=== PATIENT | male | born 1985 | race Caucasian/White ===

== ENCOUNTER 2016-12-30 12:40 | Emergency (ER) | payer SELFPAY ==
[2016-12-30] MEDS ORDERED: Proparacaine 0.5% Ophth Soln 15 ML Bottle EYELF ONE (12:50)
[2016-12-30 12:54] VITALS: BP 133/80
[2016-12-30] MEDS ORDERED: Ciprofloxacin 0.3% Ophth Soln 2.5 ML Bottle EYELF ONE (13:11)
[2016-12-30] MEDS ORDERED: Ketorolac 0.5% Ophth Soln 5 ML Bottle EYELF ONE (13:12)
--- NOTE | 2016-12-30 13:19 | EDM.PDOC ---
ED HPI EYE COMPLAINT - General Chief Complaint: Eye Problems Stated Complaint: FOREIGN BODY IN LEFT EYE Time Seen by Provider: 12/30/16 13:00 Source: Reports: Patient, Family History Limitations: Reports: No limitations - History of Present Illness INITIAL COMMENTS - FREE TEXT/NARRATIVE: 31-year-old male presents the ED with foreign body sensation left eye for the last 24 hours or more. He's not exactly sure when he got something in his eye. 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 However he was also grinding metal 2 and half days ago. The ice continues to have foreign body sensation with feeling of something underneath his left eyelid. It is excessively tearing and very sensitive to light. He does not wear contact lenses. 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 [No Known Home Meds] 12/30/16 12/30/16 Past Medical History - Past Health History Medical/Surgical History: Denies Medical/Surgical History Social & Family History - Tobacco Use Smoking Status *Q: Current Every Day Smoker Years of Tobacco use: 6 Second Hand Smoke Exposure: Yes - Alcohol Use Days Per Week of Alcohol Use: 0 Number of Drinks Per Day: 7 Total Drinks Per Week: 0 - Recreational Drug Use Recreational Drug Use: No - Living Situation & Occupation Living situation: Reports: Occupation: employed ED ROS GENERAL - Review of Systems Review Of Systems: See Below Constitutional: Reports: no symptoms HEENT: Reports: Eye discharge, Eye pain (mild left side.see history of present illness) Respiratory: Reports: No Symptoms, Cough (occasional smoker's cough.) Cardiovascular: Reports: No symptoms Endocrine: Reports: no symptoms GI/Abdominal: Reports: No symptoms : Reports: no symptoms Musculoskeletal: Reports: no symptoms Skin: Reports: no symptoms Neurological: Reports: No Symptoms, Change in Speech Psychiatric: Reports: No symptoms Hematologic/Lymphatic: Reports: no symptoms Immunologic: Reports: no symptoms ED EXAM GENERAL W FULL EYE - Physical Exam Exam: See Below Exam Limited By: No limitations General Appearance: alert, WD/WN, no apparent distress, other (left eye is quite erythematous.) Eye Exam: left eye: conjunctival injection (moderate), corneal abrasion (large corneal abrasion after removal of foreign body left cornea at the 4:00 position. ), foreign body (foreign body identified on slit lamp examination at the 4:00 position about 3 mm from the limbus. It is charcoal in color and is question whether/ALT or metal. Was removed with the aid of this slit-lamp and a 25-gauge needle. There was a small rust ring which was burred away as well.) Eyelids: left: normal appearance, lid everted for exam Conjunctiva & Sclera: left: injected (moderate) Cornea Exam: right: foreign body (4:00 position charcoal for body that was deeply embedded and not removable with a moistened Q-tip. Was removing slit- lamp examination with a 27-gauge needle. He broke up into fragments.), left: corneal abrasion (4:00 position) Extraocular Movements: bilateral: intact Pupils: normal accommodation Pupillary Size: bilateral: 6 mm Anterior Chamber: left: normal appearance Posterior Chamber: left: normal funduscopic ED EYE w/ Add Procedure - Eye Procedure Alcaine Drops Administered: Yes Eye FB Removal: removal w/ needle (under slit lamp examination.) Antibiotic Oinment/Drps Admin: left eye (Cipro) Course - Vital Signs Last Recorded V/S: Last Vital Signs Temp 36.8 C 12/30/16 12:49 Pulse 75 12/30/16 12:49 Resp 12 12/30/16 12:49 BP 133/80 12/30/16 12:49 Pulse Ox 98 12/30/16 12:49 - Orders/Labs/Meds Meds: Medications Discontinued Medications Generic Name Dose Route Start Last Admin Trade Name Freq PRN Reason Stop Dose Admin Ciprofloxacin 2.5 ml 12/30/16 13:11 Ciloxan 0.3% Ophth Soln EYELF 12/30/16 13:12 ONETIME ONE Ketorolac Tromethamine 2.5 ml 12/30/16 13:12 Acular 0.5% Ophth Soln EYELF 12/30/16 13:13 ONETIME ONE Proparacaine HCl 5 ml 12/30/16 12:50 Proparacaine 0.5% Ophth Soln EYELF 12/30/16 12:51 ONETIME ONE - Radiology Interpretation Free Text/Narrative:: 31-year-old male arrives in the ED with foreign body sensation left eye times at least 24 hours. He was doing a bit of grinding metal couple days ago and also working upon arrival found actually could have gotten into his eye. Foreign body sensation started gradually over the last 24 hours. The eye has foreign body sensation with excessive tearing and very sensitive to light full is 1224 hours examination with slit lamp identified a foreign body at the 4:00 position 3-4 mm from the limbus. It was removed with the aid of a 27-gauge needle tip under local anesthetic. Small bur ring was noted and was burred away as well. This left a fair lead deep corneal abrasion. This will take at least 2 days to heal. Patient will be placed on Cipro eyedrops 2 drops every 6 hours for the next 3 days to ensure no infection occurs ketorolac eyedrops 2 drops every 6 hours needed for relief of pain. Follow up if not completely back to normal in 48-72 hours Departure - Departure Time of Disposition: 13:13 Disposition: Home, Self-Care 01 Condition: fair Clinical Impression: Foreign body in cornea, left eye, initial encounter Qualifiers: Encounter type: initial encounter Qualified Code(s): T15.02XA - Foreign body in cornea, left eye, initial encounter Instructions: Eye Foreign Body Referrals: PCP,None [Primary Care Provider] - Forms: ED Department Discharge Additional Instructions: evaluation in the mesh from today in regards to foreign body sensation left eye for the last 12-24 hours. Unknown when something entered your eye. Identified a metallic foreign body in the left cornea at the 4 o`clock position. the foreign body was found to be deeply embedded in the cornea and as you suggested may well gone into the eye 2-3 days ago. It was removed with the aid of the slit- lamp with a 27-gauge needle. There was a small residual rust ring that was burred away. This is left a fairly deep crater in the cornea which will heal over the next 48 hours. Treatment at home is to use ketorolac eyedrops 2 drops every 6 hours needed for pain relief. Antibiotic drop in ciprofloxacin 2 drops every 66 hours for the next 3 days to prevent secondary infection. It should be covered for the next 24 hours to help it heal. Patch off distal put the drops in the drops should be put in about 5 minutes apart from each other so it each other out. after 24 hours it's up to you whether or not you need to wear the eye patch. i will otherwise be sensitive to sunlight/bright light for up to 3 days.return to medical care if he not completely back to normal in 48 hours time.
== END 2016-12-30 13:40 | disposition home or self-care (01) ==
LOC: JD.ED 12:40
DX: T15.02XA Foreign body in cornea, left eye, initial encounter (principal); F17.200 Nicotine dependence, unspecified, uncomplicated
CPT/HCPCS: 65222; 99283; A9270

== ENCOUNTER 2017-12-03 21:45 | Emergency (ER) | payer SELFPAY ==
[2017-12-03 22:11] VITALS: BP 157/85
--- NOTE | 2017-12-03 22:37 | EDM.PDOC ---
ED HPI GENERAL MEDICAL PROBLEM - General Chief Complaint: Genitourinary Problem Stated Complaint: ABDOMINAL/SWOLLEN TESTICLES Time Seen by Provider: 12/03/17 22:16 Source of Information: Reports: Patient History Limitations: Reports: No Limitations - History of Present Illness INITIAL COMMENTS - FREE TEXT/NARRATIVE: This is a 32-year-old male. About a month ago he had some pain in his testicles lasting about 2-3 days. It seemed to go away and he wasn't too concerned but then yesterday he started having some pain in his testicles a squeezing-like feeling that his only gotten worse and so he comes to the ER for evaluation. He states that the bottom of his testicles he feels these lumps and he is afraid he might have cancer. He denies any penile discharge she denies any difficulty in defecation he denies any urinary symptoms. He denies any fever or chills and no other acute problems. Groin Pain Score (Numeric/FACES): 8 - Related Data Allergies Allergy/AdvReac Type Severity Reaction Status Date / Time No Known Allergies Allergy Verified 12/03/17 22:05 Home Meds: Home Meds Doxycycline [Vibramycin] 100 mg PO BID #20 cap 12/04/17 [Rx] Past Medical History - Past Health History Medical/Surgical History: Denies Medical/Surgical History - Infectious Disease History Infectious Disease History: Reports: Chicken Pox Social & Family History - Family History Family Medical History: Noncontributory - Tobacco Use Smoking Status *Q: Current Every Day Smoker Years of Tobacco use: 15 Packs/Tins Daily: 1 Second Hand Smoke Exposure: Yes - Caffeine Use Caffeine Use: Reports: Coffee, Energy Drinks - Alcohol Use Days Per Week of Alcohol Use: 0 Number of Drinks Per Day: 7 Total Drinks Per Week: 0 - Recreational Drug Use Recreational Drug Use: No - Living Situation & Occupation Living situation: Reports: Occupation: Employed ED ROS GENERAL - Review of Systems Review Of Systems: See Below Constitutional: Denies: Fever, Chills HEENT: Reports: No Symptoms Respiratory: Reports: No Symptoms Cardiovascular: Reports: No Symptoms Endocrine: Reports: No Symptoms GI/Abdominal: Reports: Abdominal Pain : Reports: Other (Scrotum pain). Denies: Discharge, Dysuria, Frequency Musculoskeletal: Reports: No Symptoms Skin: Reports: No Symptoms Neurological: Reports: No Symptoms Psychiatric: Reports: No Symptoms Hematologic/Lymphatic: Reports: No Symptoms ED EXAM, RENAL/ - Physical Exam Exam: See Below Exam Limited By: No Limitations General Appearance: Alert, WD/WN, Mild Distress Eye Exam: Bilateral Eye: Normal Inspection Ears: Normal External Exam Nose: Normal Inspection Throat/Mouth: Normal Inspection, Normal Lips, Normal Voice, No Airway Compromise Head: Normocephalic Neck: Supple Respiratory/Chest: No Respiratory Distress GI/Abdominal: Soft (Male) Exam: Normal Inspection, Scrotum Tenderness (L), Scrotum Tenderness (R ), Other (Both epididymis are tender and swollen. No masses are noted. The testicles are also slightly sore but they're symmetrical.) Rectal (Males) Exam: Deferred Back Exam: Full Range of Motion Extremities: Normal Range of Motion Neurological: Alert, Oriented Psychiatric: Normal Affect, Normal Mood Skin Exam: Warm, Dry Course - Vital Signs Last Recorded V/S: Last Vital Signs Temp 97.8 F 12/03/17 22:09 Pulse 108 H 12/03/17 22:09 Resp 16 12/03/17 22:09 BP 157/85 H 12/03/17 22:09 Pulse Ox 96 12/03/17 22:09 - Orders/Labs/Meds Orders: Active Orders 24 hr Category Date Time Status Scrotum and Contents [US] Stat Exams 12/03/17 22:31 Taken - Radiology Interpretation Free Text/Narrative:: Ultrasound did not show any tumors or abnormal testicles it did show a fluid collection around the epididymis on both testicle suggesting epididymitis - Re-Assessments/Exams Free Text/Narrative Re-Assessment/Exam: 12/04/17 00:23 I spoke to the patient regarding the ultrasound results. We will give him a Rocephin shot [address] him on doxycycline. He does not want narcotics as he has a drug screen is going to happen at work. I will give him a couple days off work to hopefully settle this down aggravated by continual movement. Departure - Departure Time of Disposition: 00:24 Disposition: Home, Self-Care 01 Condition: Good Clinical Impression: Epididymitis, bilateral - Discharge Information Prescriptions: Doxycycline [Vibramycin] 100 mg PO BID #20 cap Referrals: Lily Lara, [employer] TECHNIC[employer] [Primary Care Provider] - Forms: ED Department Discharge, ED Return to Work/School Form Additional Instructions: Using ice pack to help with the soreness, avoid strenuous activity or lots of walking, take ibuprofen or Aleve, start the antibiotics tomorrow when you get them, recheck with your family doctor in one week, return to the ER if your symptoms worsen or you develop a fever greater than 101.5 - My Orders Last 24 Hours: My Active Orders 12/03/17 22:31 Scrotum and Contents [US] Stat - Assessment/Plan Last 24 Hours: My Active Orders 12/03/17 22:31 Scrotum and Contents [US] Stat
[2017-12-04] MEDS ORDERED: cefTRIAXone 1 GM, Lidocaine 1% 2.1 ML IM ONE ×2 (00:24)
--- NOTE | 2017-12-05 09:15 | US ---
Testicular ultrasound: Multiple real-time images of the testicles were obtained. Comparison: No prior testicular ultrasound. Testicles have a homogeneous ultrasound appearance. Several scattered and incidental calcification seen within the right testicle. Small epididymal cyst noted within the left side measuring 4 mm. Very minimal hydroceles are noted on both sides. Both testicles show arterial and venous blood flow. Measurements: Right testicle: 5.4 x 2.5 x 3.2 cm Left testicle: 4.6 x 2.5 x 3.1 cm Impression: 1. Incidental findings. Nothing acute seen on testicular ultrasound exam. Diagnostic code #2 I agree with preliminary report issued by [facility] ([facility] report finalized on 12/04/17, 12:59 AM Central Time)
== END 2017-12-04 00:37 | disposition home or self-care (01) ==
LOC: JD.ED 21:45
DX: N45.1 Epididymitis (principal); F17.210 Nicotine dependence, cigarettes, uncomplicated
CPT/HCPCS: 76870; 93975; 96372; 99283; J0696

== ENCOUNTER 2017-12-04 22:36 | Emergency (ER) | payer SELFPAY ==
[2017-12-04 22:49] VITALS: BP 130/87
[2017-12-04] MEDS ORDERED: HYDROmorphone 1 MG/ML Syringe IM ONE (22:56)
[2017-12-04] MEDS ORDERED: Promethazine 25 MG/ML SDV IM ONE (22:57)
--- NOTE | 2017-12-04 22:58 | EDM.PDOC ---
ED HPI GENERAL MEDICAL PROBLEM - General Chief Complaint: Genitourinary Problem Stated Complaint: SWOLLEN BALLS/ BALLS HURT Time Seen by Provider: 12/04/17 22:56 Source of Information: Reports: Patient History Limitations: Reports: No Limitations - History of Present Illness INITIAL COMMENTS - FREE TEXT/NARRATIVE: 32-year-old male seen through the ED last evening by Dr. Hanna and had ultrasound of scrotal contents and identified to have bilateral epididymitis. Pain came on acutely yesterday but he's had 2 previous similar bouts of epididymal orchitis. He has no trouble voiding. PT came back tonight due to uncontrolled pain. Last evening he I shot of Rocephin 1 g intramuscularly and was started on doxycycline 100 mg twice daily. 1 narcotics at that time because he is impending upcoming drug testing for workplace. Pain is constant throbbing and worsened with movement or deep breathing. He can barely walk at this time. He is aware of pain up in his groin bilaterally at the insertion of the vas deferens through the abdominal wall. Onset: Sudden Onset Date: 12/03/17 Duration: Day(s): Location: Reports: Other (Both testicles.) Quality: Reports: Ache Severity: Moderate Improves with: Reports: Rest Worsens with: Reports: Other, Movement (Still having pain even at rest.) Context: Denies: Activity (Justino walking is very painful), Exercise, Lifting, Sick Contact, Trauma, Other Treatments [employer]: Reports: NSAIDS (Motrin all day long.) Groin Pain Score (Numeric/FACES): 10 - Related Data Allergies Allergy/AdvReac Type Severity Reaction Status Date / Time No Known Allergies Allergy Verified 12/05/17 00:43 Home Meds: Home Meds Doxycycline [Vibramycin] 100 mg PO BID #20 cap 12/04/17 [Rx] oxyCODONE HCl/Acetaminophen [Percocet 5-325 mg Tablet] 1 - 2 each PO Q4H PRN # 20 tablet 12/04/17 [Rx] Past Medical History - Past Health History Medical/Surgical History: Denies Medical/Surgical History Genitourinary History: Reports: Other (See Below) (By history has had epididymoorchitis 2 in the past. This would be the third time. This strongly suggests he has an ongoing prostatitis.) - Infectious Disease History Infectious Disease History: Reports: Chicken Pox Social & Family History - Family History Family Medical History: Noncontributory - Tobacco Use Smoking Status *Q: Never Smoker Years of Tobacco use: 15 Packs/Tins Daily: 1 Second Hand Smoke Exposure: Yes - Caffeine Use Caffeine Use: Reports: None - Alcohol Use Days Per Week of Alcohol Use: 0 Number of Drinks Per Day: 7 Total Drinks Per Week: 0 - Recreational Drug Use Recreational Drug Use: No - Living Situation & Occupation Living situation: Reports: Occupation: Employed ED ROS GENERAL - Review of Systems Review Of Systems: See Below Constitutional: Reports: Malaise, Weakness, Fatigue, Decreased Appetite. Denies : Fever, Chills HEENT: Reports: No Symptoms Respiratory: Reports: No Symptoms Cardiovascular: Reports: No Symptoms Endocrine: Reports: No Symptoms GI/Abdominal: Reports: No Symptoms : Reports: Other (Bilateral testicular pain rating up into the groin bilaterally.) Musculoskeletal: Reports: No Symptoms Skin: Reports: No Symptoms Neurological: Reports: No Symptoms Psychiatric: Reports: No Symptoms Hematologic/Lymphatic: Reports: No Symptoms Immunologic: Reports: No Symptoms ED EXAM, GI/ABD - Physical Exam Exam: See Below (Bilateral testicular pain rating up into the groin bilaterally. Started 2 and half days ago) Exam Limited By: No Limitations General Appearance: Alert, Moderate Distress Eyes: Bilateral: Normal Appearance Respiratory/Chest: No Respiratory Distress, Lungs Clear, Normal Breath Sounds, No Accessory Muscle Use Cardiovascular: Normal Peripheral Pulses, Regular Rate, Rhythm, No Edema, No Gallop GI/Abdominal Exam: Normal Bowel Sounds, Soft, Non-Tender, No Organomegaly, Other (Tender in the inguinal area bilaterally without inguinal adenopathy. This is in the distribution of the vas deferens segments where they come up to the external inguinal canals bilaterally.) (Male) Exam: No Hernia, Scrotum Tenderness (L), Scrotum Tenderness (R), Testicular Tenderness (L) (Along the distribution of the epididymis particularly inferior pole. There is no large inflammatory response or hydro- seals evident.), Testicular Tenderness (R) (Dictated the inferior pole but along the distribution of the epididymis) Extremities: Normal Inspection, Normal Range of Motion, Non-Tender, No Pedal Edema Neurological: Alert, Oriented, CN II-XII Intact, Normal Cognition. No: Normal Gait Psychiatric: Normal Affect, Normal Mood Skin Exam: Warm, Dry, Intact, Normal Color, No Rash Course - Vital Signs Last Recorded V/S: Last Vital Signs Temp 36.0 C 12/04/17 22:45 Pulse 114 H 12/04/17 22:45 Resp 18 12/04/17 22:45 BP 130/87 12/04/17 22:45 Pulse Ox 100 12/04/17 22:45 - Orders/Labs/Meds Meds: Medications Discontinued Medications Generic Name Dose Route Start Last Admin Trade Name Jaya PRN Reason Stop Dose Admin Hydromorphone HCl 1 mg 12/04/17 22:56 Dilaudid IM 12/04/17 22:57 ONETIME ONE Hydromorphone HCl 1 mg 12/04/17 23:07 12/04/17 23:16 Dilaudid IM 12/04/17 23:08 1 mg ONETIME ONE Administration Oxycodone/Acetaminophen 2 tab 12/04/17 23:12 12/04/17 23:19 Percocet 325-5 Mg PO 12/04/17 23:13 2 tab ONETIME ONE Administration Promethazine HCl 25 mg 12/04/17 22:57 12/04/17 23:16 Phenergan IM 12/04/17 22:58 25 mg ONETIME ONE Administration - Radiology Interpretation Free Text/Narrative:: 32-year-old male presents to the ED with increasing testicular pain secondary to epididymoorchitis diagnosed by ultrasound last evening in the ED. Patient was given a shot of Rocephin inch tube muscularly as there was no pharmacies open. He was started on doxycycline which she was able to purchase 3 tablets a day at $5 each because he didn't have insurance. On my examination he has no change in pathology and agree with bilateral epididymoorchitis. Further investigations are required. He does need to take doxycycline 1 tablet twice daily for the next 6 weeks to clear up prostatitis and bilateral epididymoorchitis. He's going to be something better for pain relief. He has been using Motrin high doses without much relief Write a prescription for Percocet 5/3/25 milligram tabs one or 2 every 4-6 hours as needed for pain relief for the next 3-5 days until the infection starts to settle down after he starts antibiotics. - Re-Assessments/Exams Free Text/Narrative Re-Assessment/Exam: 03/04/18 23:08 checking of the records he was prescribed 20 tablets of doxycycline. This would last him only 10 days. I usually like to treat acute infective process for about 6 weeks and therefore wears her prescription for doxepin 100 mg twice daily 6 weeks which is 84 tablets. Also wrote a prescription for Percocet 5/325 milligram tablets 20 tablets--one to 2 every 4- 6 hours as necessary for pain relief over the next 3 days. He should also continue Aleve 2 tablets every 8 hours to reduce pain and inflammation or Motrin 600 mg every 6 hours to further reduce pain and inflammation until better. Departure - Departure Time of Disposition: 23:09 Disposition: Home, Self-Care 01 Condition: Fair Clinical Impression: Epididymo-orchitis, acute - Discharge Information Prescriptions: oxyCODONE HCl/Acetaminophen [Percocet 5-325 mg Tablet] 1 - 2 each PO Q4H PRN # 20 tablet PRN Reason: pain relief. Referrals: Lily Lara [employer] [facility] [Primary Care Provider] - Forms: ED Department Discharge, ED Return to Work/School Form Additional Instructions: Evaluation the emergent tonight in regards to worsening pain related to bilateral epididymal orchitis which means infection in the tissue surrounding the testicles and likely the testicles themselves severe as they are both very tender on palpation. Patient is referred up into the groin through the vas deferens which travels towards the prostate gland. The cause of this is usually underlying prostate gland infection with retrograde spread of the infection down the vas deferens to the testicles. Treatment is antibiotic doxycycline 100 mg twice daily for a full 6 weeks to try and eradicate all of the infection of the prostate gland so this does not reoccur. When she did it once you're prone to getting it again. In the meantime continue either Motrin 600 mg every 6 hours or Aleve 2 tablets every 8 hours to reduce pain and inflammation. You're given a pain shot tonight in the ED this is called Dilaudid 1 mg with Phenergan 25 mg to alleviate pain so that you can get some sleep tonight. Also provided 2 tablets of Percocet from the ED so that you can take these later this morning when you wake up or pain relief until the drug stores open. I did write a prescription for doxycycline 100 mg twice daily for a full 6 weeks to clear up this infection as best as possible. Pain medicine Percocet 5/325 one or 2 every 4-6 hours for pain not controlled by Aleve or Motrin alone. Expect gradual improvement over the next 3-10 days. I wouldn't squeegee to take all of your antibiotics to try and prevent this infection from reoccurring. Follow-up with personal care physician as needed.
[2017-12-04] MEDS ORDERED: HYDROmorphone 0.5 MG/0.5 ML SYRINGE IM ONE (23:07)
[2017-12-04] MEDS ORDERED: Acetaminophen/oxyCODONE 325-5 MG Tab PO ONE (23:12)
== END 2017-12-04 23:24 | disposition home or self-care (01) ==
LOC: JD.ED 22:36
DX: N45.3 Epididymo-orchitis (principal); Z77.22 Contact with and (suspected) exposure to environmental tobacco smoke (acute) (chronic)
CPT/HCPCS: 96372; 99283; A9270; J1170; J2550; 99284

== ENCOUNTER 2017-12-05 00:36 | Emergency (ER) | payer SELFPAY ==
[2017-12-05 00:45] VITALS: BP 133/80
[2017-12-05] MEDS ORDERED: Sodium Chloride 0.9% 1,000 ML IV ONE (00:50)
[2017-12-05] MEDS ORDERED: diphenhydrAMINE 50 MG/ML SDV IVPUSH ONE (01:16)
[2017-12-05] MEDS ORDERED: Ondansetron 4 MG/2 ML SDV IVPUSH ONE (01:17)
--- NOTE | 2017-12-05 01:17 | EDM.PDOC ---
ED HPI GENERAL MEDICAL PROBLEM - General Chief Complaint: Abdominal Pain Stated Complaint: VOMMITING CHEST PAIN UNAWARE OF HIS ENVIORMENT Time Seen by Provider: 12/05/17 01:17 Source of Information: Reports: Patient, Family (girlfriend. ) History Limitations: Reports: No Limitations - History of Present Illness INITIAL COMMENTS - FREE TEXT/NARRATIVE: This young man returns to the ED due to adverse effects of medications given in the ED within the last hour and a half. He had been seen in the ED shortly before midnight because of increasing testicular pain which was diagnosed with epididymoorchitis bilateral yesterday. He had not received anything for pain medicine particular mostly at his request. He's been taking high-dose Motrin without good pain relief. Examination revealed bilateral suspect epididymoorchitis on examination without any obvious worrisome findings on scrotal exam. An ultrasound of his scrotum had been done 24 hours ago in which revealed bilateral epididymitis. Was felt that his primary complaint was pain relief. He was therefore given intramuscular injection of 1 mg of Dilaudid with Phenergan 25 mg IM as well. Apparently shortly after getting home from the ED he started to have upper abdominal pain characteristic of biliary like colic and then recurrent nausea and vomiting. Feels somewhat better after vomiting. Apparently he broke out in a sweat for a period of time as well. Feels somewhat agitated and confused. Possible adverse effect of Phenergan. It's not sure that he's had any other medications on board that would cause a dystonic reaction. Plan we will give Benadryl 25 mg IV and Zofran 4 mg IV. Simply wait and see how he feels within the next 45 minutes to an hour. I will also having an IV of D5 normal saline at open. He states his pain in his testicles is much improved. Onset: Today Onset Date: 12/05/17 Onset Time: 00:45 Duration: Minutes: Location: Reports: Abdomen (Abdominal pain with associated intractable nausea and vomiting.), Generalized (Normalized confusion and disorientation.) Quality: Reports: Ache, Pressure Severity: Moderate Improves with: Reports: Other (He feels somewhat improved after vomiting so much.) Worsens with: Reports: None Context: Reports: Other ( and just left the ED some 45 minutes prior to onset of symptoms after he had received an intramuscular injection of 1 mg of Dilaudid and 25 mg of Phenergan for relief of bilateral epididymal orchitis.). Denies: Activity, Exercise, Lifting, Sick Contact, Trauma Associated Symptoms: Reports: Confusion, Loss of Appetite, Malaise. Denies: Chest Pain, Cough, cough w sputum, Diaphoresis, Fever/Chills, Headaches, Nausea/ Vomiting, Rash, Seizure, Shortness of Breath Treatments [employer]: Reports: Other (see below) (None.) Upper Abdomen Pain Score (Numeric/FACES): 7 - Related Data Allergies Allergy/AdvReac Type Severity Reaction Status Date / Time No Known Allergies Allergy Verified 12/05/17 00:43 Home Meds: Home Meds Doxycycline [Vibramycin] 100 mg PO BID #20 cap 12/04/17 [Rx] oxyCODONE HCl/Acetaminophen [Percocet 5-325 mg Tablet] 1 - 2 each PO Q4H PRN # 20 tablet 12/04/17 [Rx] Past Medical History - Past Health History Medical/Surgical History: Denies Medical/Surgical History Genitourinary History: Reports: Other (See Below) Other Genitourinary History: epididymitis on at least 3 occasions. Most recent diagnosis was November 04 confirmed by ultrasound. - Infectious Disease History Infectious Disease History: Reports: Chicken Pox Social & Family History - Family History Family Medical History: Noncontributory - Tobacco Use Smoking Status *Q: Never Smoker Years of Tobacco use: 15 Packs/Tins Daily: 1 Second Hand Smoke Exposure: Yes - Caffeine Use Caffeine Use: Reports: None - Alcohol Use Days Per Week of Alcohol Use: 0 Number of Drinks Per Day: 7 Total Drinks Per Week: 0 - Recreational Drug Use Recreational Drug Use: No - Living Situation & Occupation Living situation: Reports: Occupation: Employed ED ROS GENERAL - Review of Systems Review Of Systems: See Below Constitutional: Reports: Malaise, Weakness, Fatigue, Decreased Appetite. Denies : Fever, Chills HEENT: Reports: No Symptoms Respiratory: Reports: No Symptoms Cardiovascular: Reports: No Symptoms Endocrine: Reports: Fatigue GI/Abdominal: Reports: Abdominal Pain, Nausea, Vomiting (Recurrent nausea and vomiting while at home after leaving the ED.) : Reports: Other Musculoskeletal: Reports: No Symptoms (Recently diagnosed with bilateral epididymal orchitis.) Skin: Reports: No Symptoms Neurological: Reports: Confusion (Since leaving the hospital and since receiving IM injection.) Psychiatric: Reports: Anxiety Hematologic/Lymphatic: Reports: No Symptoms (Moderate degree of anxiety) Immunologic: Reports: No Symptoms ED EXAM, GI/ABD - Physical Exam Exam: See Below Exam Limited By: No Limitations General Appearance: Alert, WD/WN, Anxious (Still quite anxious.), Moderate Distress Eyes: Bilateral: Normal Appearance Throat/Mouth: Normal Inspection, Normal Lips, Normal Oropharynx Head: Atraumatic, Normocephalic Neck: Normal Inspection, Supple, Non-Tender, Full Range of Motion Respiratory/Chest: Lungs Clear, Normal Breath Sounds, Respiratory Distress ( Tachypnea On initial examination at 25/m felt to be due to anxiety.). No: Crackles, Rales, Rhonchi, Wheezing Cardiovascular: Normal Peripheral Pulses, Regular Rate, Rhythm, No Murmur GI/Abdominal Exam: Soft, Non-Tender, No Organomegaly (Decreased bowel sounds.), No Abnormal Bruit, Pelvis Stable, Abnormal Bowel Sounds Neurological: Alert, Oriented, CN II-XII Intact, Normal Cognition Psychiatric: Anxious Skin Exam: Warm, Dry (Mildly to moderately anxious), Intact, Normal Color, No Rash Course - Vital Signs Last Recorded V/S: Last Vital Signs Temp 36.0 C 12/05/17 00:43 Pulse 71 12/05/17 00:43 Resp 25 H 12/05/17 00:43 BP 133/80 12/05/17 00:43 Pulse Ox 97 12/05/17 00:43 - Orders/Labs/Meds Meds: Medications Discontinued Medications Generic Name Dose Route Start Last Admin Trade Name Freq PRN Reason Stop Dose Admin Diphenhydramine HCl 25 mg 12/05/17 01:16 12/05/17 01:23 Benadryl IVPUSH 12/05/17 01:17 25 mg ONETIME ONE Administration Sodium Chloride 1,000 mls @ 999 mls/hr 12/05/17 00:50 12/05/17 00:57 Normal Saline IV 12/05/17 01:50 999 mls/hr ONETIME ONE Administration Dextrose/Sodium Chloride 1,000 mls @ 999 mls/hr 12/05/17 01:30 12/05/17 01:59 Dextrose 5%-Normal Saline IV 999 mls/hr ASDIRECTED JOSE Administration Ondansetron HCl 4 mg 12/05/17 01:17 12/05/17 01:24 Zofran IVPUSH 12/05/17 01:18 4 mg ONETIME ONE Administration - Radiology Interpretation Free Text/Narrative:: 32-year-old male returns to the ED for about 45 minutes of leaving the ED after being given an IM injection of Dilaudid 1 mg and Phenergan 25 mg IM for relief of bilateral epididymal orchitis pain. Patient reports he didn't have any other medications on board. When he got home he started feeling upper abdominal pain and then developed prolific nausea vomiting and emptied his stomach of recently eaten food and bilious emesis. He feels somewhat better now that he feels somewhat disoriented and confused. This appears to be adverse effect of medication particularly Dilaudid, precipitating biliary colic-like illness and then nausea and vomiting. This is most unusual. The Phenergan may be causing some disorientation confusion as it usually causes some sedation. Plan I'm going to give him IV D5 normal saline at open to replace fluid losses. Benadryl 25 mg IV to eradicate any possible dystonic reaction and Zofran 4 mg IV as well for further nausea relief. He'll he feels and 45 minutes or so - Re-Assessments/Exams Free Text/Narrative Re-Assessment/Exam: 12/05/17 02:20 no further nausea or vomiting. He's actually been able to sleep most the time he spent here. He will therefore be discharged home in the care of his girlfriend. Home to bed to sleep. Departure - Departure Time of Disposition: 02:23 Disposition: Home, Self-Care 01 Condition: Fair Clinical Impression: Adverse effects of medication Qualifiers: Encounter type: initial encounter Qualified Code(s): T88.7XXA - Unspecified adverse effect of drug or medicament, initial encounter - Discharge Information Referrals: Lily Lara [employer] [Primary Care Provider] - Forms: ED Department Discharge Additional Instructions: Evaluation the emergency room tonight shortly after leaving the department after receiving an intramuscular injection of Dilaudid and Phenergan for acute relief of severe pain. The testicular pain is due to infection of the epididymis and testicles themselves which we call epididymal orchitis. Unfortunately you seemed to develop some side effects to the medications most likely the pain medication dialogue it. When he got home he developed upper abdominal discomfort and then prolific nausea and vomiting. The Phenergan medication that was administered usually events nausea and vomiting from Dilaudid but all narcotics potentially can cause nausea or vomiting as a side effect. In the emergency room you're treated with Benadryl which is an anti- nauseated as well as a medication used to calm the stomach and a bit of Zofran 4 mg which is an anti-nauseated. This seemed to relieve her nausea vomiting and allow you to sleep. At this time is home to sleep. Suggest taking only 1 pain pill at a time tomorrow to see what effect it has on your stomach. It should be taken with food as well. The doxycycline also should be taken with little something in her stomach rather empty stomach.
[2017-12-05] MEDS ORDERED: Dextrose 5%-0.9% NaCl 1,000 ML IV SCH (01:30)
== END 2017-12-05 02:32 | disposition home or self-care (01) ==
LOC: JD.ED 00:36
DX: R11.2 Nausea with vomiting, unspecified (principal); T39.315A Adverse effect of propionic acid derivatives, initial encounter; Z77.22 Contact with and (suspected) exposure to environmental tobacco smoke (acute) (chronic)
CPT/HCPCS: 96361; 96374; 96375; 99284; J1200; J2405; J7040; J7042; 99283

== ENCOUNTER 2020-05-17 16:54 | Observation (INO) | payer MEDICAID ==
[2020-05-17] MEDS ORDERED: Sodium Chloride 0.9% 10 ML Syringe FLUSH PRN ×2 (17:28→19:22)
[2020-05-17] MEDS ORDERED: Hyoscyamine 0.125 MG Tab.SL SL ONE (17:49)
[2020-05-17] MEDS ORDERED: Metoclopramide 10 MG/2 ML SDV IVPUSH ONE (18:10)
[2020-05-17] MEDS ORDERED: HYDROmorphone 1 MG/ML Syringe IVPUSH ONE (18:10)
--- NOTE | 2020-05-17 18:18 | EDM.PDOC ---
ED HPI GENERAL MEDICAL PROBLEM - General Chief Complaint: Abdominal Pain Stated Complaint: ABDOMINAL PAIN Time Seen by Provider: 05/17/20 18:04 Source of Information: Reports: Patient, RN Notes Reviewed History Limitations: Reports: No Limitations - History of Present Illness INITIAL COMMENTS - FREE TEXT/NARRATIVE: Patient is a 35-year-old male who presents to the ED for the evaluation of his right upper quadrant pain. Patient states that this pain started shortly after eating at 2 PM. He notes that he had a salami and cheese sandwich. He also recounts that he has a "bad gallbladder", and was supposed to get it removed 1 year ago, but never followed up. He also has had some nausea and vomiting in the ER. The patient notes that the pain is very sharp and stabbing, and does shoot straight through to his back. He has not had any fevers or chills, or any cough or shortness of breath. He denies any other medical issues, he has no allergies, he has had no abdominal surgeries, he does not have a regular care provider. He is a smoker, but does not drink or use drugs. Abdominal Pain Score (Numeric/FACES): 10 - Related Data Allergies Allergy/AdvReac Type Severity Reaction Status Date / Time No Known Allergies Allergy Verified 12/05/17 00:43 Home Meds: Home Meds Doxycycline [Vibramycin] 100 mg PO BID #20 cap 12/04/17 [Rx] oxyCODONE HCl/Acetaminophen [Percocet 5-325 mg Tablet] 1 - 2 each PO Q4H PRN #20 tablet 12/04/17 [Rx] Past Medical History - Past Health History Medical/Surgical History: Denies Medical/Surgical History Genitourinary History: Reports: Other (See Below) (By history has had epididymoorchitis 2 in the past. This would be the third time. This strongly suggests he has an ongoing prostatitis.) Other Genitourinary History: epididymitis on at least 3 occasions. Most recent diagnosis was November 04 confirmed by ultrasound. - Infectious Disease History Infectious Disease History: Reports: Chicken Pox Social & Family History - Family History Family Medical History: Noncontributory - Caffeine Use Caffeine Use: Reports: None - Living Situation & Occupation Living situation: Reports: Occupation: Employed ED ROS GENERAL - Review of Systems Review Of Systems: Comprehensive ROS is negative, except as noted in HPI. ED EXAM, GI/ABD - Physical Exam Exam: See Below Exam Limited By: No Limitations General Appearance: Alert, WD/WN, No Apparent Distress Eyes: Bilateral: Normal Appearance Head: Atraumatic, Normocephalic Neck: Normal Inspection Respiratory/Chest: No Respiratory Distress, Lungs Clear, Normal Breath Sounds, No Accessory Muscle Use, Chest Non-Tender Cardiovascular: Normal Peripheral Pulses, Regular Rate, Rhythm, No Murmur GI/Abdominal Exam: Normal Bowel Sounds, Soft, No Distention, No Mass, Guarding (of right upper quadrant d/t pain), Tender (Patton's sign positive) Extremities: Normal Inspection, Normal Capillary Refill Neurological: Alert, Oriented, Normal Cognition, No Motor/Sensory Deficits Psychiatric: Normal Affect, Normal Mood Skin Exam: Warm, Dry, Intact, Normal Color, No Rash Course - Vital Signs Last Recorded V/S: Last Vital Signs Temp 98.0 F 05/17/20 17:09 Pulse 70 05/17/20 17:09 Resp 16 05/17/20 17:09 BP 154/84 H 05/17/20 17:09 Pulse Ox 100 05/17/20 17:09 - Orders/Labs/Meds Orders: Active Orders 24 hr Category Date Time Status Notify Provider Consults [RC] ASDIRECTED Care 05/17/20 20:43 Ordered Peripheral IV Care [RC] . DIRECTED Care 05/17/20 17:28 Active Consult to Physician [CONS] Stat Cons 05/17/20 20:42 Ordered Abdomen Pelvis w Cont [CT] Stat Exams 05/17/20 18:12 Ordered CORONAVIRUS COVID-19 HELENA [[facility]LEC] Urgent Lab 05/17/20 20:37 Ordered Dextrose 5%-Lactated Ringers @ 125 MLS/HR(1,000ml) Med 05/17/20 21:30 Ordered Dextrose 5%-Lactated Ringers 1,000 ml IV ASDIRECTED Piperacillin/Tazobactam 4.5 GM - First Dose Med 05/17/20 21:26 Ordered Piperacillin/Tazobactam [Piperacil-Tazobact] 4.5 gm Sodium Chloride 0.9% [Normal Saline] 100 ml IV ONETIME Sodium Chloride 0.9% [Saline Flush] Med 05/17/20 17:28 Active 10 ml FLUSH ASDIRECTED PRN Sodium Chloride 0.9% [Saline Flush] Med 05/17/20 19:22 Active 10 ml FLUSH ONETIME PRN Peripheral IV Insertion Adult [OM.PC] Routine Oth 05/17/20 17:28 Ordered Medication Orders Piperacillin Sod/Tazobactam (Sod 4.5 gm/ Sodium Chloride) 100 mls @ 200 mls/hr IV ONETIME ONE Stop: 05/17/20 21:55 Dextrose/Lactated Ringer's (Dextrose 5%-Lactated Ringers) 1,000 mls @ 125 mls/hr IV ASDIRECTED JOSE Sodium Chloride (Saline Flush) 10 ml FLUSH ASDIRECTED PRN PRN Reason: Keep Vein Open Last Admin: 05/17/20 17:32 Dose: 10 ml Documented by: GURPREET Sodium Chloride (Saline Flush) 10 ml FLUSH ONETIME PRN PRN Reason: Keep Vein Open Last Admin: 05/17/20 19:24 Dose: 10 ml Documented by: ELLYN Labs: Laboratory Tests 05/17/20 05/17/20 Range/Units 18:03 18:03 WBC 8.24 (4.23-9.07) K/mm3 RBC 4.96 (4.63-6.08) M/mm3 Hgb 14.6 (13.7-17.5) gm/dl Hct 44.4 (40.1-51.0) % MCV 89.5 (79.0-92.2) fl MCH 29.4 (25.7-32.2) pg MCHC 32.9 (32.2-35.5) g/dl RDW Std Deviation 43.6 (35.1-43.9) fL Plt Count 267 (163-337) K/mm3 MPV 9.6 (9.4-12.3) fl Neut % (Auto) 64.7 (34.0-67.9) % Lymph % (Auto) 22.5 (21.8-53.1) % Overton % (Auto) 9.5 (5.3-12.2) % Eos % (Auto) 2.7 (0.8-7.0) Baso % (Auto) 0.4 (0.1-1.2) % Neut # (Auto) 5.34 (1.78-5.38) K/mm3 Lymph # (Auto) 1.85 (1.32-3.57) K/mm3 Overton # (Auto) 0.78 (0.30-0.82) K/mm3 Eos # (Auto) 0.22 (0.04-0.54) K/mm3 Baso # (Auto) 0.03 (0.01-0.08) K/mm3 Sodium 138 (136-145) mEq/L Potassium 3.7 (3.5-5.1) mEq/L Chloride 104 (98-107) mEq/L Carbon Dioxide 28 (21-32) mEq/L Anion Gap 9.7 (5-15) BUN 18 (7-18) mg/dL Creatinine 0.9 (0.7-1.3) mg/dL Est Cr Clr Drug Dosing 118.29 mL/min Estimated GFR (MDRD) > 60 (>60) mL/min BUN/Creatinine Ratio 20.0 H (14-18) Glucose 87 (74-106) mg/dL Calcium 8.7 (8.5-10.1) mg/dL Total Bilirubin 0.2 (0.2-1.0) mg/dL GGT 54 (15-85) U/L AST 53 H (15-37) U/L ALT 109 H (16-63) U/L Alkaline Phosphatase 90 (46-116) U/L Total Protein 7.1 (6.4-8.2) g/dl Albumin 3.7 (3.4-5.0) g/dl Globulin 3.4 gm/dL Albumin/Globulin Ratio 1.1 (1-2) Lipase 119 (73-393) U/L Meds: Medications Generic Name Dose Route Start Last Admin Trade Name Freq PRN Reason Stop Dose Admin Piperacillin Sod/Tazobactam 100 mls @ 200 mls/hr 05/17/20 21:26 Sod 4.5 gm/ Sodium Chloride IV 05/17/20 21:55 ONETIME ONE Dextrose/Lactated Ringer's 1,000 mls @ 125 mls/hr 05/17/20 21:30 Dextrose 5%-Lactated Ringers IV ASDIRECTED JOSE Sodium Chloride 10 ml 05/17/20 17:28 05/17/20 17:32 Saline Flush FLUSH 10 ml ASDIRECTED PRN Administration Keep Vein Open Sodium Chloride 10 ml 05/17/20 19:22 05/17/20 19:24 Saline Flush FLUSH 10 ml ONETIME PRN Administration Keep Vein Open Discontinued Medications Generic Name Dose Route Start Last Admin Trade Name Jaya PRN Reason Stop Dose Admin Diatrizoate Meglum/Diatrizoate Sod 90 ml 05/17/20 19:22 05/17/20 19:24 Gastrografin 37% PO 05/17/20 19:23 90 ml ONETIME ONE Administration Hydromorphone HCl 1 mg 05/17/20 18:10 05/17/20 18:16 Dilaudid IVPUSH 05/17/20 18:11 1 mg ONETIME ONE Administration Hyoscyamine 0.125 mg 05/17/20 17:49 05/17/20 18:17 Hyomax-Sl SL 05/17/20 17:50 0.125 mg ONETIME ONE Administration Iopamidol 100 ml 05/17/20 19:22 05/17/20 19:25 Isovue-300 (61%) IVPUSH 05/17/20 19:23 100 ml ONETIME ONE Administration Iopamidol 25 ml 05/17/20 19:22 05/17/20 19:25 Isovue-300 (61%) IVPUSH 05/17/20 19:23 25 ml ONETIME ONE Administration Metoclopramide HCl 10 mg 05/17/20 18:10 05/17/20 18:15 Reglan IVPUSH 05/17/20 18:11 10 mg ONETIME ONE Administration - Re-Assessments/Exams Free Text/Narrative Re-Assessment/Exam: 05/17/20 18:17 Patient presents to the ED for the evaluation of his right upper quadrant pain. Basic labs have been obtained, to include CBC, CMP, lipase and GGT. Patient will be given 1 mg IV Dilaudid, 10 mg Reglan, and an abdomen pelvis CT with IV and oral contrast if he can tolerate the oral contrast will be taken to evaluate for further gallbladder etiology of the patient's pain. 05/17/20 20:[address] has returned, gallbladder is mildly distended. Mild gallbladder wall thickening. No opaque gallstones. Lucent gallstones are not excluded. Question of trace of pericholecystic fluid. There is no evidence of biliary ductal dilation. Official read is impressive for abnormal gallbladder. Correlate with LFTs. Consider cholecystitis. This is on course with his clinical exam. I did call Dr. Reyna for management, coronavirus screen will be obtained for possible presurgical cholecystitis. 05/17/20 21:[address] did talk with Dr. Reyna, and he does request IV Zosyn to be given, and other bridge orders will be written for hospitalization. Departure - Departure Time of Disposition: 20:40 Disposition: Refer to Observation Condition: Good Clinical Impression: Cholecystitis - Discharge Information *PRESCRIPTION DRUG MONITORING PROGRAM REVIEWED*: No *COPY OF PRESCRIPTION DRUG MONITORING REPORT IN PATIENT JAROD: No Referrals: PCP,None [Primary Care Provider] - Forms: ED Department Discharge Sepsis Event Note (ED) - Evaluation Sepsis Screening Result: No Definite Risk - Focused Exam Vital Signs: Vital Signs Temp Pulse Resp BP Pulse Ox 05/17/20 17:09 98.0 F 70 16 154/84 H 100 - My Orders Last 24 Hours: My Active Orders 05/17/20 17:28 Peripheral IV Care [RC] . DIRECTED Sodium Chloride 0.9% [Saline Flush] 10 ml FLUSH ASDIRECTED PRN Peripheral IV Insertion Adult [OM.PC] Routine 05/17/20 18:12 Abdomen Pelvis w Cont [CT] Stat 05/17/20 19:22 Sodium Chloride 0.9% [Saline Flush] 10 ml FLUSH ONETIME PRN 05/17/20 20:37 CORONAVIRUS COVID-19 [facility]LE[facility] [MOLEC] Urgent 05/17/20 20:42 Consult to Physician [CONS] Stat 05/17/20 20:43 Notify Provider Consults [RC] ASDIRECTED 05/17/20 21:26 Piperacillin/Tazobactam 4.5 GM - First Dose Piperacillin/Tazobactam [Piperacil- Tazobact] 4.5 gm Sodium Chloride 0.9% [Normal Saline] 100 ml IV ONETIME 05/17/20 21:30 Dextrose 5%-Lactated Ringers @ 125 MLS/HR(1,000ml) Dextrose 5%-Lactated Ringers 1,000 ml IV ASDIRECTED - Assessment/Plan Last 24 Hours: My Active Orders 05/17/20 17:28 Peripheral IV Care [RC] . DIRECTED Sodium Chloride 0.9% [Saline Flush] 10 ml FLUSH ASDIRECTED PRN Peripheral IV Insertion Adult [OM.PC] Routine 05/17/20 18:12 Abdomen Pelvis w Cont [CT] Stat 05/17/20 19:22 Sodium Chloride 0.9% [Saline Flush] 10 ml FLUSH ONETIME PRN 05/17/20 20:37 CORONAVIRUS COVID-19 HELENA [MOLEC] Urgent 05/17/20 20:42 Consult to Physician [CONS] Stat 05/17/20 20:43 Notify Provider Consults [RC] ASDIRECTED 05/17/20 21:26 Piperacillin/Tazobactam 4.5 GM - First Dose Piperacillin/Tazobactam [Piperacil- Tazobact] 4.5 gm Sodium Chloride 0.9% [Normal Saline] 100 ml IV ONETIME 05/17/20 21:30 Dextrose 5%-Lactated Ringers @ 125 MLS/HR(1,000ml) Dextrose 5%-Lactated Ringers 1,000 ml IV ASDIRECTED
[2020-05-17] MEDS ORDERED: Iopamidol 612 MG/ML 50 ML SDV IVPUSH ONE (19:22)
[2020-05-17] MEDS ORDERED: Iopamidol 612 MG/ML 100 ML Bottle IVPUSH ONE (19:22)
[2020-05-17] MEDS ORDERED: Diatrizoate Meglumine/Diatrizoate Sodium 37% 120 ML Bottle PO ONE (19:22)
[2020-05-17] MEDS ORDERED: Piperacillin/Tazobactam 4.5 GM in Sodium Chloride 0.9% 100 ML IV ONE (21:26)
[2020-05-17] MEDS: HYDROmorphone 0.5 MG/0.5 ML Syringe IVPUSH PRN (21:45)
[2020-05-17] MEDS: Dextrose 5%-Lactated Ringers 1,000 ML IV SCH (21:45)
[2020-05-17] MEDS ORDERED: Ondansetron 4 MG/2 ML SDV IVPUSH PRN (23:11)
[2020-05-18] MEDS: HYDROmorphone 0.5 MG/0.5 ML Syringe IVPUSH PRN ×4 (00:04→15:59)
[2020-05-18] MEDS: Dextrose 5%-Lactated Ringers 1,000 ML IV SCH (08:01)
--- NOTE | 2020-05-18 08:44 | PCM.PREANE ---
Preanesthetic Assessment - Anesthesia/Transfusion/Family Hx Anesthesia History: No Prior Anesthesia Family History of Anesthesia Reaction: No Transfusion History: No Prior Transfusion(s) Intubation History: Unknown - Review of Systems General: No Symptoms Pulmonary: No Symptoms (Smoker: 1/2 ppd times 20 years.) Cardiovascular: No Symptoms, Palpitations (once in awhile during asleep (?anxiety per patient)) Gastrointestinal: No Symptoms (History of epididymoorchitis (prostatits)), Abdominal Pain (5/10) Neurological: No Symptoms, Headache Other: Reports: Liver Problems (elevated liver funtion tests), Neck Pain (C4-C5 herniated disk), Depression (Manic Depressive Disorder), Anxiety - Physical Assessment NPO Status Date: 05/17/20 NPO Status Time: 14:00 Vital Signs: Last Vital Signs Temp 36.5 C 05/18/20 07:54 Pulse 51 L 05/18/20 07:54 Resp 14 05/18/20 07:54 BP 115/94 H 05/18/20 07:54 Pulse Ox 97 05/18/20 07:54 Height: 1.78 m Weight: 87.135 kg ASA Class: 2E Mental Status: Alert & Oriented x3 Airway Class: Mallampati = 2 Dentition: Reports: Normal Dentition (Right upper and lower loose teeth noted.), Caries Thyro-Mental Finger Breadths: 3 Mouth Opening Finger Breadths: 3 ROM/Head Extension: Full Lungs: Clear to Auscultation, Normal Respiratory Effort Cardiovascular: Regular Rate, Regular Rhythm, No Murmurs - Lab Values: Laboratory Last Values WBC 8.24 K/mm3 (4.23-9.07) 05/17/20 18:03 RBC 4.96 M/mm3 (4.63-6.08) 05/17/20 18:03 Hgb 14.6 gm/dl (13.7-17.5) 05/17/20 18:03 Hct 44.4 % (40.1-51.0) 05/17/20 18:03 MCV 89.5 fl (79.0-92.2) 05/17/20 18:03 MCH 29.4 pg (25.7-32.2) 05/17/20 18:03 MCHC 32.9 g/dl (32.2-35.5) 05/17/20 18:03 RDW Std Deviation 43.6 fL (35.1-43.9) 05/17/20 18:03 Plt Count 267 K/mm3 (163-337) 05/17/20 18:03 MPV 9.6 fl (9.4-12.3) 05/17/20 18:03 Neut % (Auto) 64.7 % (34.0-67.9) 05/17/20 18:03 Lymph % (Auto) 22.5 % (21.8-53.1) 05/17/20 18:03 [place] % (Auto) 9.5 % (5.3-12.2) 05/17/20 18:03 Eos % (Auto) 2.7 (0.8-7.0) 05/17/20 18:03 Baso % (Auto) 0.4 % (0.1-1.2) 05/17/20 18:03 Neut # (Auto) 5.34 K/mm3 (1.78-5.38) 05/17/20 18:03 Lymph # (Auto) 1.85 K/mm3 (1.32-3.57) 05/17/20 18:03 [place] # (Auto) 0.78 K/mm3 (0.30-0.82) 05/17/20 18:03 Eos # (Auto) 0.22 K/mm3 (0.04-0.54) 05/17/20 18:03 Baso # (Auto) 0.03 K/mm3 (0.01-0.08) 05/17/20 18:03 Sodium 138 mEq/L (136-145) 05/17/20 18:03 Potassium 3.7 mEq/L (3.5-5.1) 05/17/20 18:03 Chloride 104 mEq/L (98-107) 05/17/20 18:03 Carbon Dioxide 28 mEq/L (21-32) 05/17/20 18:03 Anion Gap 9.7 (5-15) 05/17/20 18:03 BUN 18 mg/dL (7-18) 05/17/20 18:03 Creatinine 0.9 mg/dL (0.7-1.3) 05/17/20 18:03 Est Cr Clr Drug Dosing 118.29 mL/min 05/17/20 18:03 Estimated GFR (MDRD) > 60 mL/min (>60) 05/17/20 18:03 BUN/Creatinine Ratio 20.0 (14-18) H 05/17/20 18:03 Glucose 87 mg/dL (74-106) 05/17/20 18:03 Calcium 8.7 mg/dL (8.5-10.1) 05/17/20 18:03 Total Bilirubin 0.2 mg/dL (0.2-1.0) 05/17/20 18:03 GGT 54 U/L (15-85) 05/17/20 18:03 AST 53 U/L (15-37) H 05/17/20 18:03 ALT 109 U/L (16-63) H 05/17/20 18:03 Alkaline Phosphatase 90 U/L (46-116) 05/17/20 18:03 Total Protein 7.1 g/dl (6.4-8.2) 05/17/20 18:03 Albumin 3.7 g/dl (3.4-5.0) 05/17/20 18:03 Globulin 3.4 gm/dL 05/17/20 18:03 Albumin/Globulin Ratio 1.1 (1-2) 05/17/20 18:03 Lipase 119 U/L (73-393) 05/17/20 18:03 SARS Virus RNA (PCR) Negative (NEGATIVE) 05/17/20 20:50 Above labs reviewed and noted and within acceptable ranges to proceed with scheduled procedure. - Allergies Allergies/Adverse Reactions: Allergies Allergy/AdvReac Type Severity Reaction Status Date / Time No Known Allergies Allergy Verified 05/17/20 21:49 - Anesthesia Plan Pre-Op Medication Ordered: None - Acknowledgements Anesthesia Type Planned: General Anesthesia Pt an Appropriate Candidate for the Planned Anesthesia: Yes Alternatives and Risks of Anesthesia Discussed w Pt/Guardian: Yes Pt/Guardian Understands and Agrees with Anesthesia Plan: Yes PreAnesthesia Questionnaire - Past Health History Medical/Surgical History: Denies Medical/Surgical History Gastrointestinal History: Reports: Other (See Below) Other Gastrointestinal History: hx of gall bladder problems Genitourinary History: Reports: STD, Other (See Below) Other Genitourinary History: epididymitis on at least 3 occasions. Most recent diagnosis was November 04 confirmed by ultrasound. Treated for chlamydia 2 weeks ago Musculoskeletal History: Reports: Neck Pain, Chronic, Other (See Below) Other Musculoskeletal History: herniated disc c4-c5 Psychiatric History: Reports: ADHD, Depression - Infectious Disease History Infectious Disease History: Reports: Chicken Pox - SUBSTANCE USE Smoking Status *Q: Current Every Day Smoker Tobacco Use Within Last Twelve Months: Cigarettes Second Hand Smoke Exposure: No Date of Last Drink: 07/07/15 Recreational Drug Use History: No - HOME MEDS Home Medications: Home Meds . [No Known Home Meds] 05/17/20 [History] - CURRENT (IN HOUSE) MEDS Current Meds: Current Medications Hydromorphone HCl (Dilaudid) 0.5 mg IVPUSH Q2H PRN PRN Reason: Abdominal Pain Last Admin: 05/18/20 07:50 Dose: 0.5 mg Documented by: Dextrose/Lactated Ringer's (Dextrose 5%-Lactated Ringers) 1,000 mls @ 125 mls/hr IV ASDIRECTED JOSE Last Admin: 05/18/20 08:01 Dose: 125 mls/hr Documented by: Ondansetron HCl (Zofran) 4 mg IVPUSH Q8H PRN PRN Reason: Nausea/Vomiting Sodium Chloride (Saline Flush) 10 ml FLUSH ASDIRECTED PRN PRN Reason: Keep Vein Open Last Admin: 05/17/20 17:32 Dose: 10 ml Documented by: Sodium Chloride (Saline Flush) 10 ml FLUSH ONETIME PRN PRN Reason: Keep Vein Open Last Admin: 05/17/20 19:24 Dose: 10 ml Documented by: Discontinued Medications Diatrizoate Meglum/Diatrizoate Sod (Gastrografin 37%) 90 ml PO ONETIME ONE Stop: 05/17/20 19:23 Last Admin: 05/17/20 19:24 Dose: 90 ml Documented by: Hydromorphone HCl (Dilaudid) 1 mg IVPUSH ONETIME ONE Stop: 05/17/20 18:11 Last Admin: 05/17/20 18:16 Dose: 1 mg Documented by: Hyoscyamine (Hyomax-Sl) 0.125 mg SL ONETIME ONE Stop: 05/17/20 17:50 Last Admin: 05/17/20 18:17 Dose: 0.125 mg Documented by: Piperacillin Sod/Tazobactam (Sod 4.5 gm/ Sodium Chloride) 100 mls @ 200 mls/hr IV ONETIME ONE Stop: 05/17/20 21:55 Last Admin: 05/17/20 21:45 Dose: 200 mls/hr Documented by: Iopamidol (Isovue-300 (61%)) 100 ml IVPUSH ONETIME ONE Stop: 05/17/20 19:23 Last Admin: 05/17/20 19:25 Dose: 100 ml Documented by: Iopamidol (Isovue-300 (61%)) 25 ml IVPUSH ONETIME ONE Stop: 05/17/20 19:23 Last Admin: 05/17/20 19:25 Dose: 25 ml Documented by: Metoclopramide HCl (Reglan) 10 mg IVPUSH ONETIME ONE Stop: 05/17/20 18:11 Last Admin: 05/17/20 18:15 Dose: 10 mg Documented by:
[2020-05-18] MEDS ORDERED: Bupivacaine 0.5%/EPINEPHrine 1:200,000 50 ML MDV ONE (09:28)
[2020-05-18] MEDS ORDERED: Lactated Ringers 2,000 ML ONE (09:39)
[2020-05-18] MEDS ORDERED: Rocuronium 50 MG/5 ML Vial ONE (09:39)
[2020-05-18] MEDS ORDERED: Lidocaine 1% 4 ML ONE (09:39)
[2020-05-18] MEDS ORDERED: Ondansetron 4 MG/2 ML SDV ONE (09:39)
[2020-05-18] MEDS ORDERED: Dexamethasone 4 MG/ML 5 ML MDV ONE (09:39)
[2020-05-18] MEDS ORDERED: Ketorolac 30 MG/ML SDV ONE (09:39)
[2020-05-18] MEDS ORDERED: Propofol 200 MG/20 ML SDV ONE (09:40)
[2020-05-18] MEDS ORDERED: HYDROmorphone 0.5 MG/0.5 ML Syringe ONE ×3 (09:40→11:21)
[2020-05-18] MEDS ORDERED: Midazolam 1 MG/ML 2 ML SDV ONE (09:40)
[2020-05-18] MEDS ORDERED: fentaNYL 250 MCG/5 ML SDV ONE (09:40)
--- NOTE | 2020-05-18 09:41 | PCM.HP.2 ---
H&P History of Present Illness - General Date of Service: 05/18/20 Admit Problem/Dx: Admission Diagnosis/Problem Admission Diagnosis/Problem Cholecystitis Source of Information: Patient History Limitations: Reports: No Limitations - History of Present Illness Initial Comments - Free Text/Narative: Patient has been having intermittent post prandial RUQ pain for 2 yrs. Happens on average after every 6 months. Yesterday it happened again, severe RUQ pain, radiating to the right back, after eating cheese salami sandwitch. Pain was 10/10 sharp. No fevers or chills. Nausea and vomiting x 2, food residue emesis. No other history of abdominal problems. No prior surgeries. No cardiopulmonary issues. Per patient, he was supposed to have his gallbladder removed 1 yr ago but did not go to the appointment. He reports that he has known gallstones. Onset of Symptoms: Reports: Gradual Duration of Symptoms: Reports: Day(s): (1) Location: Reports: Abdomen Quality: Reports: Ache, Sharp Severity: Moderate Improves with: Reports: None Worsens with: Reports: Eating Associated Symptoms: Reports: Nausea/Vomiting Abdominal Pain Score (Numeric/FACES): 5 - Related Data Allergies/Adverse Reactions: Allergies Allergy/AdvReac Type Severity Reaction Status Date / Time No Known Allergies Allergy Verified 05/17/20 21:49 Home Medications: Home Meds . [No Known Home Meds] 05/17/20 [History] Past Medical History - Past Health History Medical/Surgical History: Denies Medical/Surgical History Gastrointestinal History: Reports: Other (See Below) Other Gastrointestinal History: hx of gall bladder problems Genitourinary History: Reports: STD, Other (See Below) Other Genitourinary History: epididymitis on at least 3 occasions. Most recent diagnosis was November 04 confirmed by ultrasound. Treated for chlamydia 2 weeks ago Musculoskeletal History: Reports: Neck Pain, Chronic, Other (See Below) Other Musculoskeletal History: herniated disc c4-c5 Psychiatric History: Reports: ADHD, Depression - Infectious Disease History Infectious Disease History: Reports: Chicken Pox Social & Family History - Family History Family Medical History: Noncontributory - Tobacco Use Smoking Status *Q: Current Every Day Smoker Years of Tobacco use: 20 Packs/Tins Daily: 0.5 Used Tobacco, but Quit: No Second Hand Smoke Exposure: No - Caffeine Use Caffeine Use: Reports: Coffee, Soda - Alcohol Use Date of Last Drink: 07/07/15 - Recreational Drug Use Recreational Drug Use: No - Living Situation & Occupation Living situation: Reports: Occupation: Employed H&P Review of Systems - Review of Systems: Review Of Systems: See Below General: Reports: No Symptoms HEENT: Reports: No Symptoms Pulmonary: Reports: No Symptoms Cardiovascular: Reports: No Symptoms Gastrointestinal: Reports: Abdominal Pain (RUQ) Genitourinary: Reports: No Symptoms Musculoskeletal: Reports: No Symptoms Skin: Reports: No Symptoms Psychiatric: Reports: No Symptoms Neurological: Reports: No Symptoms Hematologic/Lymphatic: Reports: No Symptoms Immunologic: Reports: No Symptoms Exam - Exam Exam: See Below - Vital Signs Vital Signs: Last Vital Signs Temp 97.7 F 05/18/20 07:54 Pulse 51 L 05/18/20 07:54 Resp 14 05/18/20 07:54 BP 115/94 H 05/18/20 07:54 Pulse Ox 97 05/18/20 07:54 Weight: 87.135 kg - Exam General: Alert, Oriented, Cooperative Lungs: Clear to Auscultation, Normal Respiratory Effort Cardiovascular: Regular Rate, Regular Rhythm, Normal S1, Normal S2 GI/Abdominal Exam: Soft, No Organomegaly, No Distention, No Abnormal Bruit, No Mass, Tender (RUQ, positive covington sign) - Patient Data Lab Results Last 24 hrs: Laboratory Results - last 24 hr 05/17/20 05/17/20 05/17/20 Range/Units 18:03 18:03 20:50 WBC 8.24 (4.23-9.07) K/mm3 RBC 4.96 (4.63-6.08) M/mm3 Hgb 14.6 (13.7-17.5) gm/dl Hct 44.4 (40.1-51.0) % MCV 89.5 (79.0-92.2) fl MCH 29.4 (25.7-32.2) pg MCHC 32.9 (32.2-35.5) g/dl RDW Std Deviation 43.6 (35.1-43.9) fL Plt Count 267 (163-337) K/mm3 MPV 9.6 (9.4-12.3) fl Neut % (Auto) 64.7 (34.0-67.9) % Lymph % (Auto) 22.5 (21.8-53.1) % [place] % (Auto) 9.5 (5.3-12.2) % Eos % (Auto) 2.7 (0.8-7.0) Baso % (Auto) 0.4 (0.1-1.2) % Neut # (Auto) 5.34 (1.78-5.38) K/mm3 Lymph # (Auto) 1.85 (1.32-3.57) K/mm3 [place] # (Auto) 0.78 (0.30-0.82) K/mm3 Eos # (Auto) 0.22 (0.04-0.54) K/mm3 Baso # (Auto) 0.03 (0.01-0.08) K/mm3 Sodium 138 (136-145) mEq/L Potassium 3.7 (3.5-5.1) mEq/L Chloride 104 (98-107) mEq/L Carbon Dioxide 28 (21-32) mEq/L Anion Gap 9.7 (5-15) BUN 18 (7-18) mg/dL Creatinine 0.9 (0.7-1.3) mg/dL Est Cr Clr Drug Dosing 118.29 mL/min Estimated GFR (MDRD) > 60 (>60) mL/min BUN/Creatinine Ratio 20.0 H (14-18) Glucose 87 (74-106) mg/dL Calcium 8.7 (8.5-10.1) mg/dL Total Bilirubin 0.2 (0.2-1.0) mg/dL GGT 54 (15-85) U/L AST 53 H (15-37) U/L ALT 109 H (16-63) U/L Alkaline Phosphatase 90 (46-116) U/L Total Protein 7.1 (6.4-8.2) g/dl Albumin 3.7 (3.4-5.0) g/dl Globulin 3.4 gm/dL Albumin/Globulin Ratio 1.1 (1-2) Lipase 119 (73-393) U/L SARS Virus RNA (PCR) Negative (NEGATIVE) Result Diagrams: 05/17/20 18:03 05/17/20 18:03 Sepsis Event Note - Evaluation Sepsis Screening Result: No Definite Risk - Focused Exam Vital Signs: Vital Signs Temp Pulse Resp BP Pulse Ox 05/18/20 07:54 97.7 F 51 L 14 115/94 H 97 05/18/20 03:29 97.5 F 57 L 16 113/57 L 97 05/17/20 22:12 97.7 F 56 L 16 124/75 96 Problem List Initiated/Reviewed/Updated: No Orders Last 24hrs: Active Orders 24 hr Category Date Time Status Admission Status [Patient Status] [ADT] Routine ADT 05/17/20 21:39 Active Activity as Tolerated [RC] .Routine Care 05/17/20 23:10 Active Notify Provider Consults [RC] ASDIRECTED Care 05/17/20 20:43 Active Peripheral IV Care [RC] Q2HR Care 05/17/20 17:28 Active Consult to Physician [CONS] Stat Cons 05/17/20 20:42 Active NPO After Midnight [Nothing per Oral After Midnight Diet 05/18/20 Breakfast Active Diet] [DIET] Abdomen Pelvis w Cont [CT] Stat Exams 05/17/20 18:12 Taken Dextrose 5%-Lactated Ringers 1,000 ml Med 05/17/20 21:30 Active IV ASDIRECTED HYDROmorphone [Dilaudid] Med 05/17/20 21:32 Active 0.5 mg IVPUSH Q2H PRN Ondansetron [Zofran] Med 05/17/20 23:11 Active 4 mg IVPUSH Q8H PRN Sodium Chloride 0.9% [Saline Flush] Med 05/17/20 17:28 Active 10 ml FLUSH ASDIRECTED PRN Sodium Chloride 0.9% [Saline Flush] Med 05/17/20 19:22 Active 10 ml FLUSH ONETIME PRN Peripheral IV Insertion Adult [OM.PC] Routine Oth 05/17/20 17:28 Ordered Schedule Procedure [COMM] Timed Oth 05/18/20 10:00 Ordered Resuscitation Status Routine Resus Stat 05/17/20 23:09 Ordered Medication Orders Hydromorphone HCl (Dilaudid) 0.5 mg IVPUSH Q2H PRN PRN Reason: Abdominal Pain Last Admin: 05/18/20 07:50 Dose: 0.5 mg Documented by: Admin: 05/18/20 00:04 Dose: 0.5 mg Documented by: Admin: 05/17/20 21:45 Dose: 0.5 mg Documented by: BAILEE Dextrose/Lactated Ringer's (Dextrose 5%-Lactated Ringers) 1,000 mls @ 125 mls/hr IV ASDIRECTED JOSE Last Admin: 05/18/20 08:01 Dose: 125 mls/hr Documented by: Infusion: 05/18/20 05:45 Dose: 125 mls/hr Documented by: Admin: 05/17/20 21:45 Dose: 125 mls/hr Documented by: BAILEE Ondansetron HCl (Zofran) 4 mg IVPUSH Q8H PRN PRN Reason: Nausea/Vomiting Sodium Chloride (Saline Flush) 10 ml FLUSH ASDIRECTED PRN PRN Reason: Keep Vein Open Last Admin: 05/17/20 17:32 Dose: 10 ml Documented by: GURPREET Sodium Chloride (Saline Flush) 10 ml FLUSH ONETIME PRN PRN Reason: Keep Vein Open Last Admin: 05/17/20 19:24 Dose: 10 ml Documented by: ELLYN Assessment/Plan Comment:: Patient has what appears to be acute on chronic cholecystitis. I recommended we proceed with cholecystectomy today. Plan is laparoscopic cholecystectomy, possible open, possible IOC. I discussed with the patient, risks, benefits and alternatives. Risks discussed include bleeding, infection, injury to adjacent structures such as liver or biliary tree, need for additional procedure and even . All questions were answered and informed consent was obtained.
[2020-05-18] MEDS ORDERED: Ondansetron 4 MG/2 ML SDV IVPUSH PRN (09:58)
[2020-05-18] MEDS ORDERED: fentaNYL 100 MCG/2 ML SDV IVPUSH PRN (09:58)
[2020-05-18] MEDS ORDERED: ePHEDrine 50 MG/ML SDV IVPUSH PRN (09:58)
[2020-05-18] MEDS ORDERED: diphenhydrAMINE 50 MG/ML SDV IVPUSH PRN (09:58)
[2020-05-18] MEDS ORDERED: Midazolam 1 MG/ML 2 ML SDV IVPUSH PRN (09:58)
[2020-05-18] MEDS ORDERED: Albuterol 0.083% 2.5 MG/3 ML Neb Soln NEB PRN (09:59)
[2020-05-18] MEDS ORDERED: HYDROmorphone 0.5 MG/0.5 ML Syringe IVPUSH PRN (09:59)
[2020-05-18] MEDS ORDERED: Phenylephrine 1 MG in Sodium Chloride 0.9% 10 ML IV SCH (10:00)
--- NOTE | 2020-05-18 11:51 | PCM.POSTAN ---
POST ANESTHESIA ASSESSMENT - MENTAL STATUS Mental Status: Alert - VITAL SIGNS Vital Signs: Last Vital Signs Temp 98.6 05/18/20 1136 Pulse 69 05/18/20 1136 Resp 8 05/18/20 1136 BP 143/98 05/18/20 1136 Pulse Ox 100 05/18/20 1136 - RESPIRATORY Respiratory Status: Respiratory Rate WNL, Airway Patent, O2 Saturation Stable, Supplemental Oxygen - CARDIOVASCULAR CV Status: Pulse Rate WNL, Blood Pressure Stable - GASTROINTESTINAL GI Status: No Symptoms - POST OP HYDRATION Hydration Status: Adequate & Stable
--- NOTE | 2020-05-18 12:02 | PCM48HPAN ---
Post Anesthesia Note - EVALUATION WITHIN 48HRS OF ANESTHETIC Vital Signs in Normal Range: Yes Patient Participated in Evaluation: Yes Respiratory Function Stable: Yes Airway Patent: Yes Cardiovascular Function Stable: Yes Hydration Status Stable: Yes Pain Control Satisfactory: Yes Nausea and Vomiting Control Satisfactory: Yes Mental Status Recovered: Yes Vital Signs: Last Vital Signs Temp 37.0 C 05/18/20 11:37 Pulse 69 05/18/20 11:37 Resp 8 L 05/18/20 11:37 BP 143/98 H 05/18/20 11:37 Pulse Ox 100 05/18/20 11:37
--- NOTE | 2020-05-18 12:12 | OR ---
DATE OF OPERATION: 05/18/2020 SURGEON: Rome Reyna MD PREOPERATIVE DIAGNOSIS: Acute cholecystitis. POSTOPERATIVE DIAGNOSIS: Acute cholecystitis. OPERATION PERFORMED: Laparoscopic cholecystectomy. ANESTHESIA: General endotracheal. ESTIMATED BLOOD LOSS: 5 mL. COMPLICATIONS: None. INDICATION AND CONSENT: The patient is a 35-year-old male who has been having right upper quadrant pain for about 2 years. He was seen last year by a physician and an ultrasound showed cholelithiasis. Laparoscopic cholecystectomy was recommended. The patient never followed up. Yesterday, when he was eating a sandwich, he started having sharp right upper quadrant pain radiating to the right back. The pain was so severe that the patient came to the emergency department. In the ED, white count was normal. CT scan showed mild inflammation around the gallbladder. The patient was admitted for IV fluids since he was nauseated and vomiting, as well as pain medications. He got a dose of antibiotics as well. I saw the patient this morning. When this exam was compatible with the right upper quadrant pain, I discussed with the patient recommendation for undergoing laparoscopic cholecystectomy, possible open, possible intraoperative cholangiogram. Of note, the patient's LFTs were normal except for AST and ALT, but T bili was normal. We discussed with the patient risks, benefits, and alternatives. The patient wanted to proceed with laparoscopic cholecystectomy, so informed consent was obtained. DESCRIPTION OF PROCEDURE: The patient was taken to the operating room, placed in a supine position. The patient was padded appropriately. General anesthesia was induced. No additional perioperative antibiotics were needed. The patient's abdomen was prepped and draped in the usual sterile fashion. Formal time-out then was performed prior to the start of the procedure. We began the procedure by injecting 0.5% Marcaine with epinephrine in the infraumbilical position. Then, incision was made at this site. Umbilical stalk was elevated and the Veress needle was inserted into the stomach and the stomach was insufflated to 15 mmHg. Then, a 12 mm Visiport was placed in the infraumbilical position under direct visualization of 10 30 laparoscope. Quick survey of the abdomen revealed highly distended gallbladder with adherent omentum. No other acute abnormalities. Three additional 5 mm trocars were placed, 1 in the infraxiphoid area and 2 in the right upper quadrant. Then, we turned our attention to the right upper quadrant. First because of the distention of the gallbladder, we used the laparoscopic needle to decompress the gallbladder. Then, the gallbladder was grasped and elevated cranially. Adherent omentum was removed with cautery and graspers until we reached the infundibulum. Then, this area was cleared out carefully with [place] as well as judicious use of cautery. Cystic duct was skeletonized as well as the cystic artery. Critical window of safety was achieved. Then, cystic artery and cystic duct were clipped with 3 clips and transected with laparoscopic scissors leaving 2 clips in situ. Then, the gallbladder was taken off the gallbladder fossa using cautery. There was no injury to the liver or any other structures that were visible. At this point, the gallbladder was placed in the EndoCatch bag and removed through the infraumbilical position. Then, the gallbladder fossa as well as the dissection area was inspected and appeared to be intact and hemostatic. The infraumbilical incision was closed at the fascial level with 0 Vicryl stitch using a Miah-Sharmaine device. Then, all other incisions including the infraumbilical incision were closed at the skin level with 4-0 Monocryl stitches. Then, Dermabond was applied. This marked the end of the procedure. At the end of the procedure, all instruments, sharps, and sponges were counted and found to be correct x2. The patient was awoken from general anesthesia and taken to the PACU in stable condition. PLAN: Will be for the patient to possibly go home today. The patient is to refrain from lifting more than 20 pounds for 4 weeks. The patient to come in to clinic in 2 weeks for postop check. MMODAL /[id number]
--- NOTE | 2020-05-18 13:24 | CT ---
CT abdomen and pelvis Technique: Multiple axial sections were obtained from above the dome of the diaphragm inferiorly through the pubic symphysis. Intravenous contrast and oral contrast has been given. Delayed images were obtained through the bladder. Comparison: No prior intracranial imaging is available. Findings: Visualized lung bases show nothing acute. Liver contains no focal parenchymal abnormality. Gallbladder is slightly distended. No calcified gallstones are seen. Adrenal glands show no nodule. Pancreas shows no discrete abnormality. Spleen appears within normal limits. Kidneys show symmetric contrast enhancement without hydronephrosis or mass. Aorta shows no aneurysm. No retroperitoneal adenopathy or mesenteric abnormalities are seen. Appendix is seen and is felt to be within normal limits. No pelvic mass or adenopathy is seen. No free fluid or inflammatory change is appreciated within the abdomen or within the pelvis. Delayed images shows contrast within the distal ureters as well as contrast within the bladder. 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 Minimal spondylolisthesis is seen at L5-S1. Impression: 1. Slightly distended gallbladder either which may relate to fasting. Please correlate with patient's symptoms. If patient has any symptoms referrable to the gallbladder, gallbladder ultrasound could then be obtained. 2. Other findings which appear chronic as noted above. Diagnostic code #3 This report was dictated in MDT I agree with preliminary report from [facility], finalized on 05/17/20, 8:52 PM Central Daylight Time
[2020-05-18] MEDS ORDERED: Acetaminophen/oxyCODONE 325-5 MG Tab PO PRN (14:41)
[2020-05-18] MEDS ORDERED: Cyclobenzaprine 10 MG Tab PO ONE ×2 (18:10→18:45)
--- NOTE | 2020-05-18 19:01 | PCM.SN.2 ---
- Free Text/Narrative Note: I got called to see the patient as he was having pain. I saw the patient. He complains of pain in the RUQ that feels like a over- exertion muscle cramp and it takes his breath away. pain is worse when supine and better when upright and ambulating. We took vitals as he has the episode and So2 stayed at 99% even when he was in pain and unable to breath properly. BP was in 130s/80s, HR in the 80s. Incisional pain is tolerable. He tolerated regular diet earlier today. On exam, he is in moderate distress, appears well perfused. normal breathing when upright, HR regular, normal rhythm. Abd soft, moderately tender around the incisions, right mid-subcostal incision is the most tender in the tissues around it. There is mild sarath-incisional bruising but no drainage of swelling. A/P - Based on history and my exam, i believe the patient is having muscle spasms. No signs of hemodynamic instability. He is already feeling improvement. Plan - try Flexeril muscle relaxant. If this works, I will prescribe it to the patient for home. If it does not work, continue expectant care with PO pain meds and NSAIDs overnight. - If patient feels better, Ok to discharge. Update: 30 min after taking FLexeril, patient feels better and wound like to be discharged. I think this is ok. I discussed with the patient that all pharmacies are closed therefore he wont be able to get his meds overnight. I tried to get [facility] but the patient did not have a credit card for payments. He verbalized that he will rely on NSAIDs overnight and picking tech his medications in the morning.
[2020-05-18 19:20] VITALS: BP 139/96; PULSE 91
== END 2020-05-18 19:10 | disposition home or self-care (01) ==
LOC: JD.ED 16:54 → JD.MS 21:39
PROVIDERS: ADMIT Surgery; ATTEND Surgery
DX: K80.12 Calculus of gallbladder with acute and chronic cholecystitis without obstruction (principal); F32.9 Major depressive disorder, single episode, unspecified; F90.9 Attention-deficit hyperactivity disorder, unspecified type; F17.210 Nicotine dependence, cigarettes, uncomplicated; Z11.59 Encounter for screening for other viral diseases
CPT/HCPCS: 36415; 47562; 74177; 80053; 82977; 83690; 85025; 87635; 96361; 96365; 96375; 96376; 99285; A9270; G0378; J1100; J1170; J1885; J2001; J2543; J2704; J2710; J2765; J3010; J3490; J7050; J7120; J7121; Q9963; Q9967; 00790; J2250; J2370; J2405; U0002

== ENCOUNTER 2020-05-20 11:03 | Emergency (ER) | payer MEDICAID ==
[2020-05-20] MEDS ORDERED: HYDROmorphone 1 MG/ML Syringe IM ONE (11:37)
[2020-05-20] MEDS ORDERED: Metoclopramide 10 MG/2 ML SDV IM ONE (11:37)
--- NOTE | 2020-05-20 11:48 | EDM.PDOC ---
ED HPI GENERAL MEDICAL PROBLEM - General Chief Complaint: Abdominal Pain Stated Complaint: ABDOMINAL PAIN Time Seen by Provider: 05/20/20 11:27 Source of Information: Reports: Patient, RN Notes Reviewed History Limitations: Reports: No Limitations - History of Present Illness INITIAL COMMENTS - FREE TEXT/NARRATIVE: Patient is a 35-year-old male who presents to the ED for evaluation of his abdomen pain. Patient notes that he had his gallbladder removed Tuesday, by Dr. Reyna, and was discharged subsequently. He states that the surgery mostly went fine as he was told there is no complications. He states ever since then, he is felt bloated, has not been able to have a BM or passing gas, feels nauseated but cannot puke. He feels like he has trapped gas that he is unable to relieve he was given Dilaudid for pain management in the hospital, and discharged with 5 mg oxycodone for pain at home. He took 1 tablet Tuesday morning, but states this did not help much for the pain, has not taken this medication since. He has not had any fevers or chills, he has tenderness around the laparoscopic sites, but no immense pain. He has no cough no shortness of breath, no vomiting or diarrhea. He states he has been taking Dulcolax, and took 45 mL of milk of magnesia to try to help pass his stool, nothing has been productive. He states he is not contacted Dr. Reyna after the surgery. He states that he went home Tuesday, and ate 2 large meals, but has been afraid to eat since then, he states he ate a little bit yesterday. Abdomen Pain Score (Numeric/FACES): 10 - Related Data Allergies Allergy/AdvReac Type Severity Reaction Status Date / Time No Known Allergies Allergy Verified 05/20/20 11:29 Home Meds: Home Meds Cyclobenzaprine [Flexeril] 10 mg PO TID PRN 3 Days #12 tab 05/18/20 [Rx] Docusate Sodium [Colace] 100 mg PO Q12HR 10 Days #20 capsule 05/18/20 [Rx] oxyCODONE 5 mg PO Q8H PRN 3 Days #12 tab 05/18/20 [Rx] Past Medical History Genitourinary History: Reports: STD, Other (See Below) Other Genitourinary History: epididymitis on at least 3 occasions. Most recent diagnosis was November 04 confirmed by ultrasound. Treated for chlamydia 2 weeks ago Musculoskeletal History: Reports: Neck Pain, Chronic, Other (See Below) Other Musculoskeletal History: herniated disc c4-c5 Psychiatric History: Reports: ADHD, Depression - Infectious Disease History Infectious Disease History: Reports: Chicken Pox - Past Surgical History GI Surgical History: Reports: Cholecystectomy ([facility] 05/18/2020) Social & Family History - Family History Family Medical History: Noncontributory - Tobacco Use Smoking Status *Q: Current Every Day Smoker Years of Tobacco use: 15 Packs/Tins Daily: 1 - Caffeine Use Caffeine Use: Reports: Coffee, Soda - Living Situation & Occupation Living situation: Reports: Occupation: Employed ED ROS GENERAL - Review of Systems Review Of Systems: Comprehensive ROS is negative, except as noted in HPI. ED EXAM, GI/ABD - Physical Exam Exam: See Below Exam Limited By: No Limitations General Appearance: Alert, WD/WN, No Apparent Distress Eyes: Bilateral: Normal Appearance Respiratory/Chest: No Respiratory Distress, Lungs Clear, Normal Breath Sounds, No Accessory Muscle Use, Chest Non-Tender Cardiovascular: Normal Peripheral Pulses, Regular Rate, Rhythm, No Edema, No Murmur GI/Abdominal Exam: Normal Bowel Sounds, Soft, No Mass, Distended (mild generalized), Tender (around the laprascopic sites), Other (laparascopic sites that appear to be healing well) Neurological: Alert, Oriented, Normal Cognition, No Motor/Sensory Deficits Psychiatric: Normal Affect, Normal Mood Skin Exam: Warm, Dry, Intact, No Rash, Ecchymosis (around laparascopic sites on anterior abdomen) Course - Vital Signs Last Recorded V/S: Last Vital Signs Temp 96.6 F L 05/20/20 12:30 Pulse 68 05/20/20 12:30 Resp 18 05/20/20 12:30 BP 130/82 05/20/20 12:30 Pulse Ox 99 05/20/20 12:30 - Orders/Labs/Meds Meds: Medications Discontinued Medications Generic Name Dose Route Start Last Admin Trade Name Freq PRN Reason Stop Dose Admin Fentanyl 50 mcg 05/20/20 12:08 05/20/20 12:20 Sublimaze IM 05/20/20 12:09 50 mcg ONETIME ONE Administration Hydromorphone HCl 1 mg 05/20/20 11:37 05/20/20 11:53 Dilaudid IM 05/20/20 11:38 1 mg ONETIME ONE Administration Magnesium Citrate 296 ml 05/20/20 12:16 05/20/20 12:24 Citrate Of Magnesia PO 05/20/20 12:17 296 ml ONETIME ONE Administration Metoclopramide HCl 10 mg 05/20/20 11:37 05/20/20 11:52 Reglan IM 05/20/20 11:38 10 mg ONETIME ONE Administration - Re-Assessments/Exams Free Text/Narrative Re-Assessment/Exam: 05/20/20 11:50 Patient presents to the ED for evaluation of his abdomen pain post cholecystectomy. Abdomen appears to be mildly generally distended, it is definitely not obtunded. Laparoscopic sites appear to be healing well. We will do abdomen x-rays, give him something for pain, nausea, I did explain laparoscopic surgery to him, and he seems to have a better understanding. I did tell him also that he should contact his surgeon if he thinks he is having complications, as they would probably like to know. 05/20/20 12:16 Patient did become quite unruly, an RPR was called; as he states the shot that I gave him made the pain worse. His x-ray does show quite a bit of stool throughout the colon with a mildly dilated large bowel. There is no sign of obstruction. He will be given a bottle of mag citrate, and he will need to follow-up with Dr. Reyna for further pain management. 05/20/20 12:26 I did also try to call Dr. Reyna to let him know what was going on with the patient; but he did not answer and I did not receive a call back. Departure - Departure Time of Disposition: 12:17 Disposition: Home, Self-Care 01 Condition: Good Clinical Impression: Constipation due to opioid therapy, S/P cholecystectomy - Discharge Information *PRESCRIPTION DRUG MONITORING PROGRAM REVIEWED*: No *COPY OF PRESCRIPTION DRUG MONITORING REPORT IN PATIENT JAROD: No Instructions: Laparoscopic Cholecystectomy, Care After, [id number] Referrals: PCP,None [Primary Care Provider] - Forms: ED Department Discharge Additional Instructions: You were evaluated in the ER for your bloated abdomen. You were given a handout on the care after laparoscopic surgery. This should help explain your surgery procedure and what to expect. You do have quite a large amount of stool within your colon. You were given a medication to help give you a good bowel movement. Opioid pain medications can cause constipation, please try to take as few of these as possible to relieve your pain. You may try to take Tylenol 500 mg Q6H PRN for further pain relief. Do not exceed 4000mg Tylenol in a 24H time period. Recommend you follow up with your surgeon to let him know that you were having issues with pain management. Please return to the ER if your symptoms change or worsen. Sepsis Event Note (ED) - Evaluation Sepsis Screening Result: No Definite Risk - Focused Exam Vital Signs: Vital Signs Temp Pulse Resp BP Pulse Ox 05/20/20 12:30 96.6 F L 68 18 130/82 99 05/20/20 11:25 97.2 F 80 16 136/82 96
[2020-05-20] MEDS ORDERED: fentaNYL 100 MCG/2 ML SDV IM ONE (12:08)
[2020-05-20] MEDS ORDERED: Magnesium Citrate Solution 296 ML Bottle PO ONE (12:16)
--- NOTE | 2020-05-20 12:25 | CR ---
Abdomen: Upright view of the abdomen was obtained as well as supine study. Comparison: Previous CT abdomen and pelvis exam of 05/17/20. Contrast is noted within the colon as well as stool. This is noted within the right and transverse regions. Colon is dilated. Small amount of contrast is noted with diverticuli within the descending colon. Calcifications are noted within the pelvis which are felt compatible phleboliths. Surgical clips are seen from prior cholecystectomy. No acute bony abnormality is appreciated. Impression: 1. Slightly dilated colon containing contrast and stool as noted above. 2. Descending colon diverticuli. 3. Other findings believed to be incidental. Diagnostic code #2 This report was dictated in MDT
[2020-05-20 12:34] VITALS: BP 130/82; PULSE 68
== END 2020-05-20 12:30 | disposition home or self-care (01) ==
LOC: JD.ED 11:03
DX: K59.03 Drug induced constipation (principal); F17.210 Nicotine dependence, cigarettes, uncomplicated; T40.2X5A Adverse effect of other opioids, initial encounter; Z90.49 Acquired absence of other specified parts of digestive tract
CPT/HCPCS: 74019; 96372; 99284; A9270; J1170; J2765; J3010; 99283

== ENCOUNTER 2022-08-27 02:42 | Emergency (ER) | payer SELFPAY ==
[2022-08-27 02:52] VITALS: BP 124/68; PULSE 76
== END 2022-08-27 03:24 | disposition home or self-care (01) ==
LOC: JD.ED 02:42
DX: L25.9 Unspecified contact dermatitis, unspecified cause (principal); J32.9 Chronic sinusitis, unspecified; F41.9 Anxiety disorder, unspecified; F32.A Depression, unspecified; F17.210 Nicotine dependence, cigarettes, uncomplicated; F90.9 Attention-deficit hyperactivity disorder, unspecified type; Z79.899 Other long term (current) drug therapy
CPT/HCPCS: 99282

== ENCOUNTER 2024-01-30 22:15 | Emergency (ER) | payer OTHER ==
[2024-01-31] MEDS: Ibuprofen 400 MG Tab PO ONE (00:20)
[2024-01-31 00:21] VITALS: BP 129/78; PULSE 77
== END 2024-01-31 00:03 | disposition home or self-care (01) ==
LOC: JD.ED 22:15
DX: S89.82XA Other specified injuries of left lower leg, initial encounter (principal); Z88.6 Allergy status to analgesic agent; Z79.899 Other long term (current) drug therapy; X50.9XXA Other and unspecified overexertion or strenuous movements or postures, initial encounter; Y93.72 Activity, wrestling
CPT/HCPCS: 73562-26-LT; 73562-LT; 99283